=== PATIENT | male | born 2005 | race Two or more races ===

== ENCOUNTER 2025-03-03 13:04 | Emergency (ER) | payer MEDICAID, SELFPAY ==
[2025-03-03 13:06] VITALS: BMI 33.0
[2025-03-03 13:14] VITALS: BP 127/77; PULSE 75; RESP 16; TEMP 36.9; O2SAT 98
--- NOTE | 2025-03-03 13:49 | EDNOTE_ITS ---
ED General RME/HPI General Chief complaint: General Adult/Misc Complain Stated complaint: BURNING IN EYES FROM ANXIETY MEDS Time Seen by Provider: 03/03/25 13:25 Source: patient Arrival date/time: 03/03/25 13:04 19-year-old male with no known medical history presents to the emergency room with a chief complaint of a burning sensation in his eyes bilaterally as well as stiff neck x 2 days. Patient states he is taking medication for his anxiety and since starting this medication is began to have the symptoms. Mode of arrival: ambulatory Limitations: no limitations Related Data Allergies Allergy/AdvReac Type Severity Reaction Status Date / Time NKA* Allergy Uncoded 03/03/25 13:08 Review of Systems Review of Systems Systems Reviewed: All systems reviewed, normal except as documented Constitutional Constitutional: Reports system reviewed and no additional complaints, except as documented, Denies fatigue, Denies fever(s), Denies headache(s) and Denies weakness Eyes Eyes: Reports system reviewed and no additional complaints, except as documented, Denies blind spots, Reports blurry vision, Denies change in vision, Denies diplopia, Denies eye discharge, Denies irritation, Denies loss of peripheral vision, Denies loss of vision, Reports eye pain, Reports photophobia, Denies requires corrective lenses, Denies seeing flashes, Denies spots in vision and Denies tunnel vision ENT Ears, Nose, Mouth, and Throat: Reports system reviewed and no additional complaints, except as documented, Denies otalgia, Denies headache(s), Denies nasal congestion, Denies throat swelling and Denies vertigo Cardiovascular Cardiovascular: Reports system reviewed and no additional complaints, except as documented, Denies chest pain, Denies dyspnea and Denies dyspnea on exertion Respiratory Respiratory: Reports system reviewed and no additional complaints, except as documented, Denies chest congestion, Denies cough, Denies dyspnea, Denies dyspnea on exertion and Denies wheezing Gastrointestinal Gastrointestinal: Reports system reviewed and no additional complaints, except as documented, Denies abdominal pain, Denies cramping, Denies nausea and Denies vomiting Genitourinary Genitourinary: Reports system reviewed and no additional complaints, except as documented, Denies dysuria and Denies hematuria Musculoskeletal Musculoskeletal: Reports system reviewed and no additional complaints, except as documented and Denies back pain Integumentary/Breasts Skin/Breast: Reports system reviewed and no additional complaints, except as documented and Denies wounds Neurologic Neurologic: Reports system reviewed and no additional complaints, except as documented, Denies confusion, Denies headache(s), Denies lack of coordination, Denies loss of vision, Denies vertigo and Denies weakness Psychiatric Psychiatric: Reports system reviewed and no additional complaints, except as documented, Denies anxiety, Denies confusion, Denies depression, Denies paranoia, Denies suicidal ideation and Denies tactile hallucinations Endocrine Endocrine: Reports system reviewed and no additional complaints, except as documented and Denies fatigue Hematologic/Lymphatic Hematologic/Lymphatic: Reports system reviewed and no additional complaints, except as documented and Denies lymphadenopathy Allergic/Immunologic Allergic/Immunologic: Reports system reviewed and no additional complaints, except as documented, Denies throat swelling, Denies urticaria and Denies wheezing Past Medical History Social History SMOKING STATUS: Never smoker ED Exam General Limitations: Present no limitations General appearance: Present alert and in no apparent distress Head Head exam: Present atraumatic Eye Eye exam: Present normal appearance, PERRL and EOMI Expanded Eye Exam Eyelids: bilateral: normal inspection Pupils: Bilateral: regular, round and reactive Sclera/Conjunctival: bilateral: normal inspection Anterior chamber: bilateral: normal inspection IOP (R) in mmH IOP (L) in mmH IOP measured with: [facility] ENT exam: Present normal exam, normal oropharynx and mucous membranes moist Neck Neck exam: Present normal inspection, full ROM and trachea midline; Absent tenderness, meningismus, lymphadenopathy or thyromegaly Expanded Neck Exam Neck exam focused ED: Absent midline tenderness, paraspinal tenderness, tracheal deviation, anterior neck swelling, thyroid enlargement, JVD or carotid bruit Chest Chest inspection: Present normal inspection and symmetric chest wall rise Respiratory Respiratory exam: Present normal lung sounds bilaterally Cardiovascular Cardiovascular exam: Present regular rate, normal rhythm and normal heart sounds Abdominal Exam Abdominal exam: Present soft and normal bowel sounds Extremities Exam Extremities exam: Present normal inspection and full ROM Back Exam Back exam: Present normal inspection and full ROM Neurological Exam Neurological exam: Present alert, oriented X3 and CN II-XII intact Psychiatric Psychiatric exam: Present normal affect and normal mood Skin Skin exam: Present warm, dry, intact and normal color Course Quality Measures none Orders Category Date Time Status CBC Stat Lab 03/03/25 14:15 Completed CMP [Comprehensive Metabolic Panel] Stat Lab 03/03/25 14:15 Completed Vital Signs Vital signs: Vital Signs Temperature 98.4 F 03/03/25 13:14 Pulse Rate 75 03/03/25 13:14 Respiratory Rate 16 03/03/25 13:14 Blood Pressure 127/77 03/03/25 13:14 Pulse Oximetry (%) 98 03/03/25 13:14 Oxygen Delivery Method Room Air 03/03/25 13:14 O2 saturation 98% within normal limits MDM Patient data External records reviewed:: [facility] previous records Clinical information provided by:: patient Social determinants that could affect healthcare access:: none Patient has the following chronic illnesses:: No chronic illness How is presenting disease/condition affected by chronic disease/condition?: no chronic disease Evaluation data The following diagnostics were reviewed and interpreted by me:: lab results and radiology exam(s) Lab and/or radiology exams considered but not ordered:: Labs and radiology exams considered and ordered Interpretation Summary: N/A Medications Medications considered but not ordered:: Medication Medication administrations:: Medication given Consultations Consultation(s) initiated? (list below): No Diagnosis Differential Diagnosis ED Complaint MDM: Adverse reaction to medication/allergic reaction/acute angle glaucoma/menin Most likely diagnosis given after review of the tests above:: Adverse reaction to medication Admission Indicated Admission indicated?: not indicated Explain why admission is indicated or not indicated:: N/A Admission Request Was there a request for admission?: No Disposition Plan Disposition Plan: Discharge Discharge Attestation Discharge Attestation: The patient and all family members were given an opportunity to ask questions and understood the discharge instructions. Discharge instructions specifically effects, indications for sooner follow up or return to the emergency department, and the expected course of current diagnosis. Patient condition: Stable Medical Decision Making MDM Narrative MDM Narrative: 19-year-old male with no known medical history presents to the emergency room with a chief complaint of a burning sensation in his eyes bilaterally as well as stiff neck x 2 days. Patient states he is taking medication for his anxiety and since starting this medication is began to have the symptoms. Patient is hemodynamically stable and in no apparent distress. Physical examination shows a normal ENT examination. The pupils are PERRLA EOMs are intact patient is a GCS of 15 he is alert and oriented patient states he feels a burning pressure sensation to his eyes bilaterally. The tonometer was used and the pressure bilaterally was within normal limits. Patient is also complaining of a stiff neck patient is able to move it and has a full range of motion. CBC CMP were negative for any leukocytosis I spoke to the patient and told him that the most probable cause of all his symptoms are due to his anxiety medication. The patient states that ever since starting this medication although the symptoms began. I spoke to the patient and told him to stop taking this medication and to follow-up with his primary care provider Patient was discharged and educated to follow-up with primary care provider in the next 24 to 48 hours and return to the emergency room for any evidence of worsening signs or symptoms Differential Diagnosis Differential Diagnosis: Adverse reaction to medication/allergic reaction/acute angle glaucoma/menin Lab Data 03/03/25 14:15 03/03/25 14:15 Labs: Lab Results 03/03/25 Range/Units 14:15 WBC 10.5 (4.5-11.0) Thou/mm3 RBC 5.67 (4.50-5.90) Miln/mm3 Hgb 15.8 (13.5-16.0) g/dL Hct 49.2 (41.0-53.0) % MCV 87 (80-100) fL MCH 27.9 (25.0-35.0) pg MCHC 32.1 (31.0-37.0) g/dl RDW Std Deviation 39.6 (35.1-43.9) fL Plt Count 297 (140-440) Thou/mm3 Neut % (Auto) 66 (37-80) % Lymph % (Auto) 26 (10-50) % Stanley % (Auto) 6 (0-12) % Eos % (Auto) 2 (0-10) % Baso % (Auto) 1 (0-2.5) % Neut # (Auto) 6.9 (1.8-7.7) Thou/mm3 Lymph # (Auto) 2.7 (1.0-4.8) Thou/mm3 Stanley # (Auto) 0.6 (0.0-0.8) Thou/mm3 Eos # (Auto) 0.2 (0.0-0.5) Thou/mm3 Baso # (Auto) 0.1 (0.0-0.2) Thou/mm3 Immature Gran # (Auto) 0.04 H (0.00-0.00) Thou/mm3 Absolute Nucleated RBC 0.00 (0.00-0.00) Thou/mm3 Immature Gran % 0 (0-0) % Nucleated RBC % 0 (0) /100 WBC Sodium 142 (136-145) mMol/L Potassium 4.2 (3.4-5.1) mMol/L Chloride 105 (98-107) mMol/L Carbon Dioxide 28.9 (20.0-31.0) mMol/L Anion Gap 8 (7-16) BUN 13 (9-23) mg/dL Creatinine 1.2 (0.6-1.3) mg/dL Estim Creat Clear Calc 136.9 (>60) mL/min eGFR > 60 (60 - ) See Note BUN/Creatinine Ratio 11 L (12-20) Ratio Glucose 87 (74-106) mg/dL Calculated Osmolality 282 (275-295) Calcium 9.7 (8.3-10.6) mg/dL Corrected Calcium 9.7 (8.5-10.1) mg/dL Total Bilirubin 0.8 (0.3-1.2) mg/dL AST 20 (0-34) U/L ALT 19 (10-49) U/L Alkaline Phosphatase 87 (46-116) U/L Total Protein 8.0 (5.7-8.2) gm/dL Albumin 5.1 H (3.5-5.0) gm/dL Globulin 2.9 (2.3-3.5) gm/dL Albumin/Globulin Ratio 1.8 (1.2-2.2) Discharge Plan Plan Patient Disposition: HOME (Self Care) Disposition Comment: Stable Prescriptions/Referrals Referrals: No Primary/Family,Physician [Primary Care Provider] - In 1 week Problem List Clinical Impression: Adverse effects of medication Patient/Caregiver Discharge Instructions Education Materials: ED Drug Reaction, Other Additional Instructions: Please follow-up with your primary care provider in the next 24 to 48 hours. Please stop taking your anxiety medication. This seems to be the source of all your problems. Blood work was completed today and there is no acute signs of any infection. The eye pressure in your eyes today was normal. Please follow-up with your primary care provider and return to the emergency room for any evidence of worsening signs or symptoms Print Language: Sierra Leonean Stand Alone Forms: [employer] Award Info., Patient Portal Info Letter KALEB/ASHLEIGH Supervising Physician KALEB/ASHLEIGH Supervising Physician: Dr Griffin
[2025-03-03 14:40] LABS: Basophils # (Auto) 0.1 Thou/mm3 (0.0-0.2); Basophils % (Auto) 1 % (0-2.5); Eosinophils # (Auto) 0.2 Thou/mm3 (0.0-0.5); Eosinophils % (Auto) 2 % (0-10); Hematocrit 49.2 % (41.0-53.0); Hemoglobin 15.8 g/dL (13.5-16.0); Immature Granulocytes % (Auto) 0 % (0-0); Immature Granulocytes Auto 0.04 Thou/mm3 (0.00-0.00); Lymphocytes # (Auto) 2.7 Thou/mm3 (1.0-4.8); Lymphocytes % (Auto) 26 % (10-50); Mean Corpuscular HGB Conc 32.1 g/dl (31.0-37.0); Mean Corpuscular Hemoglobin 27.9 pg (25.0-35.0); Mean Corpuscular Volume 87 fL (80-100); Monocytes # (Auto) 0.6 Thou/mm3 (0.0-0.8); Monocytes % (Auto) 6 % (0-12); Neutrophils # (Auto) 6.9 Thou/mm3 (1.8-7.7); Neutrophils % (Auto) 66 % (37-80); Nucleated Red Blood Cell % 0 /100 WBC (0); Platelet Count 297 Thou/mm3 (140-440); RDW Standard Deviation 39.6 fL (35.1-43.9); Red Blood Count 5.67 Miln/mm3 (4.50-5.90); White Blood Count 10.5 Thou/mm3 (4.5-11.0)
[2025-03-03 15:02] LABS: Alanine Aminotransferase 19 U/L (10-49); Albumin, Serum 5.1 gm/dL (3.5-5.0); Albumin/Globulin Ratio 1.8 (1.2-2.2); Alkaline Phosphatase 87 U/L (46-116); Anion Gap 8 (7-16); Aspartate Amino Transferase 20 U/L (0-34); BUN/Creatinine Ratio 11 Ratio (12-20); Bilirubin,Total 0.8 mg/dL (0.3-1.2); Blood Urea Nitrogen 13 mg/dL (9-23); Calcium 9.7 mg/dL (8.3-10.6); Calcium (Corrected) 9.7 mg/dL (8.5-10.1); Carbon Dioxide 28.9 mMol/L (20.0-31.0); Chloride 105 mMol/L (98-107); Creatinine (Component) 1.2 mg/dL (0.6-1.3); Estimated Creatinine Clearance 136.9 mL/min (>60); Globulin 2.9 gm/dL (2.3-3.5); Glucose 87 mg/dL (74-106); Osmolality,Calculated 282 (275-295); Potassium 4.2 mMol/L (3.4-5.1); Sodium 142 mMol/L (136-145); eGFR > 60 See Note
== END 2025-03-03 16:22 | disposition home or self-care (01) ==
PROVIDERS: Nurse Practitioner Family; Emergency Provider Emergency Medicine
DX: F41.9 Anxiety disorder, unspecified (principal); T50.905A Adverse effect of unspecified drugs, medicaments and biological substances, initial encounter
CPT/HCPCS: 36415; 80053; 85025; 99283

== ENCOUNTER 2025-05-09 04:45 | Emergency (ER) | payer MEDICAID, SELFPAY ==
[2025-05-09 04:46] VITALS: BMI 33.5
[2025-05-09 05:31] VITALS: BP 122/84; PULSE 84; RESP 19; TEMP 36.7; O2SAT 99
--- NOTE | 2025-05-09 06:00 | PD.EDRME ---
Rapid Medical Screening Exam RME Arrival date/time: 05/09/25 04:45 Chief Complaint: Abdominal Pain Vital signs: Vital Signs Temperature 98.1 F 05/09/25 05:31 Pulse Rate 84 05/09/25 05:31 Respiratory Rate 19 05/09/25 05:31 Blood Pressure 122/84 05/09/25 05:31 Pulse Oximetry (%) 99 05/09/25 05:31 Oxygen Delivery Method Room Air 05/09/25 05:31 Vital signs reviewed by provider: Yes RME Narrative: 19-year-old male presents to the ED with a complaint of epigastric pain that began at approximately 7 PM tonight. He states he ate food at approximately 3 PM and the pain began around 7 PM. He has had nausea but no vomiting. He denies fever or chills. He denies any previous occurrence. He denies any reflux type symptoms. I have greeted and performed a focused initial assessment of this patient. A comprehensive ED assessment and evaluation of the patient, analysis of all test results, and completion of the medical decision making process will be conducted by additional ED providers.
--- NOTE | 2025-05-09 06:01 | XR_ITS ---
Examination: Abdomen sonogram, complete Date and time of exam: May 09, 2025, 0816 hrs. Indications: Onset right upper abdominal pain today. Technique: Multiple real-time grayscale transabdominal sonographic images of the abdomen have been obtained. Findings: Multiple gallstones Gallbladder wall 0.46 cm no edema Common bile duct 0.6 cm no stones Liver 15.4 cm no focal liver lesions Normal hepatopedal portal venous flow Patent IVC Impression: Cholelithiasis Thickened gallbladder wall, clinical correlation advised, consider HIDA scan or MRCP follow-up as clinically warranted
[2025-05-09 06:40] LABS: Amphetamine/Methamp Scrn,U Negative (Negative); Barbiturate Screen,Urine Negative (Negative); Benzodiazepines Screen,Urine Negative (Negative); Benzoylecgonine Screen, Ur Negative (Negative); Fentanyl Screen,Urine Negative (Negative); Opiate Screen,Urine Negative (Negative); THC Screen,Urine Negative (Negative)
[2025-05-09 07:42] LABS: Basophils % (Auto) 0 % (0-2.5); Eosinophils # (Auto) 0.2 Thou/mm3 (0.0-0.5); Eosinophils % (Auto) 2 % (0-10); Hematocrit 48.1 % (41.0-53.0); Immature Granulocytes % (Auto) 1 % (0-0); Immature Granulocytes Auto 0.05 Thou/mm3 (0.00-0.00); Lymphocytes # (Auto) 2.6 Thou/mm3 (1.0-4.8); Lymphocytes % (Auto) 24 % (10-50); Mean Corpuscular HGB Conc 33.3 g/dl (31.0-37.0); Mean Corpuscular Hemoglobin 28.3 pg (25.0-35.0); Mean Corpuscular Volume 85 fL (80-100); Monocytes # (Auto) 0.8 Thou/mm3 (0.0-0.8); Monocytes % (Auto) 7 % (0-12); Neutrophils # (Auto) 7.3 Thou/mm3 (1.8-7.7); Neutrophils % (Auto) 66 % (37-80); Nucleated Red Blood Cell % 0 /100 WBC (0); Platelet Count 256 Thou/mm3 (140-440); RDW Standard Deviation 38.5 fL (35.1-43.9); Red Blood Count 5.66 Miln/mm3 (4.50-5.90)
[2025-05-09 08:22] LABS: Alanine Aminotransferase 21 U/L (10-49); Alkaline Phosphatase 85 U/L (46-116); Amylase 36 U/L (30-118); Anion Gap 11 (7-16); Aspartate Amino Transferase 18 U/L (0-34); BUN/Creatinine Ratio 8 Ratio (12-20); Bilirubin,Total 0.5 mg/dL (0.3-1.2); Blood Urea Nitrogen 8 mg/dL (9-23); Calcium 9.7 mg/dL (8.3-10.6); Calcium (Corrected) 9.7 mg/dL (8.5-10.1); Carbon Dioxide 27.5 mMol/L (20.0-31.0); Chloride 105 mMol/L (98-107); Estimated Creatinine Clearance 165.5 mL/min (>60); Globulin 2.5 gm/dL (2.3-3.5); Glucose 98 mg/dL (74-106); Lipase 31 U/L (12-53); Magnesium 2.2 mg/dL (1.6-2.6); Osmolality,Calculated 283 (275-295); Phosphorous 4.1 mg/dL (2.4-5.1); Potassium 3.7 mMol/L (3.4-5.1); Sodium 143 mMol/L (136-145); Total Protein 7.5 gm/dL (5.7-8.2); eGFR > 60 See Note
--- NOTE | 2025-05-09 08:28 | PC.NURSE ---
NO ANSWER AT THIS TIME
--- NOTE | 2025-05-09 08:58 | EDNOTE_ITS ---
ED General RME/HPI General Chief complaint: Abdominal Pain Stated complaint: RUQ ABD PAIN Time Seen by Provider: 05/09/25 06:23 Arrival date/time: 05/09/25 04:45 Limitations: no limitations RME / HPI RME / HPI narrative: 19-year-old male presents to the ED with a complaint of epigastric pain that began at approximately 7 PM tonight. He states he ate food at approximately 3 PM and the pain began around 7 PM. He has had nausea but no vomiting. He denies fever or chills. He denies any previous occurrence. He denies any reflux type symptoms. I have greeted and performed a focused initial assessment of this patient. A comprehensive ED assessment and evaluation of the patient, analysis of all test results, and completion of the medical decision making process will be conducted by additional ED providers. DR. WRIGHT MAIN ED EVALUATION: 19 year old male presents to the Emergency Department accompanied by his father with complaint of severe epigastric pain since yesterday, worse this morning at 4 AM. PMHx: Anxiety (takes medication), GERD (takes Pepsin since 2 months ago), takes vitamin D, and had an appendectomy. Denies any known allergies. Social Hx: No tobacco, alcohol, or substance use. Related Data Previous Rx's ?Medication ?Instructions ?Recorded hydrocodone 5 mg-acetaminophen 325 1 tab PO TID PRN pa in #14 tabs 05/09/25 mg tablet Allergies Allergy/AdvReac Type Severity Reaction Status Date / Time No Known Allergies Allergy Unverified 05/09/25 09:39 Review of Systems Review of Systems Systems Reviewed: All systems reviewed, normal except as documented Past Medical History Past Medical History CARDIAC: Negative Congestive Heart Failure RESPIRATORY: Negative Chronic Obstructive Pulmonary Disease (COPD) GENITOURINARY: Negative Renal Disease ENDOCRINE: Negative Diabetes Mellitus Type 1 or Diabetes Mellitus Type 2 PSYCHO/SOCIAL: Positive Anxiety Social History SMOKING STATUS: Never smoker ED Exam General Limitations: Present no limitations General appearance: Present alert Head Head exam: Present atraumatic, normocephalic and normal inspection Eye Eye exam: Present normal appearance, PERRL and EOMI ENT ENT exam: Present normal exam, normal oropharynx and mucous membranes moist Neck Neck exam: Present normal inspection, full ROM and trachea midline Chest Chest inspection: Present normal inspection and symmetric chest wall rise Respiratory Respiratory exam: Present normal lung sounds bilaterally Cardiovascular Cardiovascular exam: Present regular rate, normal rhythm and normal heart sounds Abdominal Exam Abdominal exam: Present normal bowel sounds and other (epigastric pain, but no tenderness, obese abdomen) Extremities Exam Extremities exam: Present normal inspection and full ROM Back Exam Back exam: Present normal inspection and full ROM Neurological Exam Neurological exam: Present alert, oriented X3 and CN II-XII intact Psychiatric Psychiatric exam: Present normal affect and normal mood Skin Skin exam: Present warm, dry, intact and normal color Course Quality Measures none Orders Category Date Time Status NPO STAT Care 05/09/25 06:01 Completed NM HIDA w pharm Stat Exams 05/09/25 11:24 Ordered US abdomen Stat Exams 05/09/25 06:01 Completed Amylase Stat Lab 05/09/25 06:45 Completed CBC Stat Lab 05/09/25 06:45 Completed Comprehensive Metabolic Panel Stat Lab 05/09/25 06:45 Completed Drug Screen,Urine Stat Lab 05/09/25 06:10 Completed Lipase Stat Lab 05/09/25 06:45 Completed Magnesium Stat Lab 05/09/25 06:45 Completed Phosphorous Stat Lab 05/09/25 06:45 Completed Urine Culture Stat Lab 05/09/25 06:10 Received Lidocaine 2% Viscous [Xylocaine 2% Viscous] Med 05/09/25 10:53 Discontinued 15 ml PO X1 ONE Pantoprazole Inj [Protonix Inj] Med 05/09/25 09:37 Discontinued 40 mg IVP X1 ONE Sodium Chloride 0.9% 1000 ml [Ns] 1,000 ml Med 05/09/25 09:37 Discontinued IV 999 mls/hr mg Hyd/Al Hyd/Andrés Susp [Maalox Susp] Med 05/09/25 10:53 Discontinued 30 ml PO X1 ONE Vital Signs Vital signs: Vital Signs Temperature 98.1 F 05/09/25 05:31 Pulse Rate 84 05/09/25 05:31 Respiratory Rate 19 05/09/25 05:31 Blood Pressure 122/84 05/09/25 05:31 Pulse Oximetry (%) 99 05/09/25 05:31 Oxygen Delivery Method Room Air 05/09/25 05:31 Discharge Plan Plan Patient Disposition: HOME (Self Care) Patient condition on transfer: Stable Prescriptions/Referrals Prescriptions/Med Rec: New hydrocodone-acetaminophen 5-325 mg tablet 1 tab PO TID MDD 3 PRN (Reason: pain) Qty: 14 0RF Referrals: Cheng Peres MD [Primary Care Provider] - In 1 week Problem List Clinical Impression: Epigastric pain Patient/Caregiver Discharge Instructions Education Materials: ED Epigastric Pain (Uncertain Cause) Additional Instructions: Please return tomorrow for you HIDA scan, preferably after 8 AM. Return to the Emergency Department as needed. Por favor, regrese ma?radha para collado gammagraf?a HIDA, preferiblemente despu?s de las 8:00 a. m. Regrese a Urgencias cuando sea necesario. Print Language: Estonian Stand Alone Forms: [employer] Award Info., Work/School Release, Patient Portal Info Letter MDM Narrative [facility] hospital course: I, Sandra Ernst, am scribing for and in the presence of Dr. Wright. Patient has epigastric pain. No HIDA scan available on Sundays, so patient will come back tomorrow. Plan to discharge. Clinical Information Provided by patient and parent (father) Medical Records Reviewed [facility] Meds/Rx Considered, not Ordered None Labs/Rad/Tests considered, not Ordered None Chronic Illness/Social Conditions Add or document further as needed: Anxiety (takes medication), GERD (takes Pepsin since 2 months ago), takes vitamin D, and had an appendectomy. Denies any known allergies. EKG EKG not done Lab Interpretation Labs: see narrative above Imaging Imaging interpretation: see narrative above Radiology reports / interpretation(s): Procedure(s): US abdomen Accession Number(s): [id number] cc: Yonas Campos MD; Zakia Queen PA-C; Cheng Peres MD~ Examination: Abdomen sonogram, complete Date and time of exam: May 09, 2025, 0816 hrs. Indications: Onset right upper abdominal pain today. Technique: Multiple real-time grayscale transabdominal sonographic images of the abdomen have been obtained. Findings: Multiple gallstones Gallbladder wall 0.46 cm no edema Common bile duct 0.6 cm no stones Liver 15.4 cm no focal liver lesions Normal hepatopedal portal venous flow Patent IVC Impression: Cholelithiasis Thickened gallbladder wall, clinical correlation advised, consider HIDA scan or MRCP follow-up as clinically warranted Dictated By: Yonas Campos MD Medication Administration(s) Medication Administration History Discontinued Medications Al Hydrox/Mg Hydrox/Simethicone (Mg Hyd/Al Hyd/Andrés (Maalox Reg) Susp 30 Ml Udc) 30 ml PO X1 ONE Stop: 05/09/25 10:54 Last Admin: 05/09/25 11:01 Dose: 30 ml Documented By: FÉLIX Sodium Chloride (Ns) 1,000 mls @ 999 mls/hr IV .Q1H1M ONE Stop: 05/09/25 10:37 Last Infusion: 05/09/25 11:05 Dose: Infused Documented By: Admin: 05/09/25 09:54 Dose: 999 mls/hr Documented By: LIN Lidocaine HCl (Lidocaine Viscous 2% 15 Ml Udc) 15 ml PO X1 ONE Stop: 05/09/25 10:54 Last Admin: 05/09/25 11:01 Dose: 15 ml Documented By: FÉLIX Pantoprazole Sodium (Pantoprazole Inj 40 Mg Vial) 40 mg IVP X1 ONE Stop: 05/09/25 09:38 Last Admin: 05/09/25 09:55 Dose: 40 mg Documented By: LIN Diagnosis Differential diagnosis: GERD, gastritis, peptic ulcer disease Most likely dx, and/or detailed dx discussion: Epigastric pain. Dispositon Disposition: Discharge Home
[2025-05-09 09:09] VITALS: BP 134/85; PULSE 81; RESP 18; TEMP 36.8; O2SAT 98
[2025-05-09] MEDS: SODIUM CHLORIDE 0.9% 1000 ML 1,000 ML 999 ML IV (09:54)
[2025-05-09] MEDS: PANTOPRAZOLE INJ 40 MG VIAL IVP (09:55)
[2025-05-09 10:16] VITALS: BP 136/89; PULSE 55; RESP 18; TEMP 36.8; O2SAT 98
[2025-05-09] MEDS: LIDOCAINE VISCOUS 2% 15 ML UDC PO (11:01)
[2025-05-09] MEDS: MG HYD/AL HYD/SIME (Maalox Reg) SUSP 30 ML UDC PO (11:01)
[2025-05-09 12:00] VITALS: BP 136/80; PULSE 61; RESP 20; TEMP 36.6; O2SAT 100
[2025-05-09 12:45] VITALS: BP 137/90; PULSE 61; RESP 16; TEMP 36.7; O2SAT 99
== END 2025-05-09 12:46 | disposition home or self-care (01) ==
PROVIDERS: Physician Assistant; Emergency Provider Family Medicine; PCP Family Medicine
DX: K80.20 Calculus of gallbladder without cholecystitis without obstruction (principal)
CPT/HCPCS: 36415; 76700; 80053; 80307; 81001; 82150; 83690; 83735; 84100; 85025; 87086; 96361; 96374; 99284; J2470; J3490; J7030; A9270

== ENCOUNTER 2025-05-09 18:46 | Emergency (ER) | payer MEDICAID, SELFPAY ==
[2025-05-09 18:56] VITALS: BP 117/77; PULSE 84; RESP 17; TEMP 36.9; O2SAT 98; BMI 32.5
--- NOTE | 2025-05-09 18:59 | XR_ITS ---
Examination: Abdomen sonogram, Limited Date and time of exam: May 09, 2025 1904 hours INDICATIONS: Onset of epigastric pain and nausea today Technique: Real-time villagran scale transabdominal sonographic images of the upper abdomen obtained. Findings: Multiple gallstones Gallbladder wall 0.29 cm with edema Common bile duct 0.2 cm Pancreatic 3.3 cm Liver 17.7 cm lobular contour fatty infiltration Normal hepatopedal portal venous and Date and IVC IMPRESSION: Cholelithiasis. Suspicious for cholecystitis, consider HIDA scan or MRCP follow-up
--- NOTE | 2025-05-09 19:21 | PD.EDABDPN ---
ED Abdominal Pain RME/HPI General Chief Complaint: Abdominal Pain Stated complaint: EPIGASTRIC PAIN Time seen by provider: 05/09/25 18:48 Arrival date/time: 05/09/25 18:46 This is a case of 19-year-old male who came in in the emergency room due to abdominal pain mainly on the epigastric area radiating to the both upper abdomen patient states that the pain has on and off for 1 month which becomes severe today patient was seen here this morning where blood test was performed and everything were normal ultrasound showed cholelithiasis due to thickened gallbladder the radiologist suggested to have HIDA scan patient was given pain medication here in the ER and improved and was advised to return tomorrow for HIDA scan due to persistent severity of the pain this patient decided to sought consult here in the emergency room associated symptoms nausea vomiting denies any constipation diarrhea or blood in stool Source: patient and family Limitations: no limitations Related Data Previous Rx's ?Medication ?Instructions ?Recorded famotidine 20 mg tablet 20 mg PO BID #30 tabs 05/09/25 hydrocodone 5 mg-acetaminophen 325 1 tab PO Q6H PRN pain #10 tabs 05/09/25 mg tablet hydrocodone 5 mg-acetaminophen 325 1 tab PO TID PRN pain #14 tabs 05/09/25 mg tablet ondansetron 4 mg disintegrating 4 mg PO Q8H PRN nausea and 05/09/25 tablet vomiting #20 tabs Allergies Allergy/AdvReac Type Severity Reaction Status Date / Time No Known Allergies Allergy Unverified 05/09/25 18:49 Review of Systems Review of Systems Systems Reviewed: All systems reviewed, normal except as documented Constitutional Constitutional: Reports system reviewed and no additional complaints, except as documented and Reports as per HPI ENT Ears, Nose, Mouth, and Throat: Denies dysphagia and Denies odynophagia Cardiovascular Cardiovascular: Reports system reviewed and no additional complaints, except as documented and Reports as per HPI Respiratory Respiratory: Reports system reviewed and no additional complaints, except as documented and Reports as per HPI Gastrointestinal Gastrointestinal: Reports system reviewed and no additional complaints, except as documented, Reports as per HPI, Reports abdominal pain, Denies belching, Denies bloating, Denies change in bowel habits, Denies change in stool character, Denies coffee ground emesis, Denies constipation, Denies cramping, Denies diarrhea, Denies dyspepsia, Denies dysphagia, Denies early satiety, Denies excessive flatus, Denies fecal incontinence, Denies heartburn, Denies hematemesis, Denies hematochezia, Denies loose stools, Denies melena, Reports nausea, Denies odynophagia, Denies tenesmus and Reports vomiting Musculoskeletal Musculoskeletal: Reports system reviewed and no additional complaints, except as documented and Reports as per HPI Neurologic Neurologic: Reports system reviewed and no additional complaints, except as documented and Reports as per HPI Past Medical History Past Medical History CARDIAC: Negative Congestive Heart Failure RESPIRATORY: Negative Chronic Obstructive Pulmonary Disease (COPD) GENITOURINARY: Negative Renal Disease ENDOCRINE: Negative Diabetes Mellitus Type 1 or Diabetes Mellitus Type 2 PSYCHO/SOCIAL: Positive Anxiety Social History SMOKING STATUS: Never smoker ED Exam General Limitations: Present no limitations General appearance: Present alert and in no apparent distress Head Head exam: Present atraumatic, normocephalic and normal inspection Eye Eye exam: Present normal appearance, PERRL and EOMI ENT ENT exam: Present normal exam, normal oropharynx, mucous membranes moist and TM's normal bilaterally; Absent mucous membranes dry Neck Neck exam: Present normal inspection, full ROM and trachea midline; Absent tenderness, meningismus, lymphadenopathy or thyromegaly Chest Chest inspection: Present normal inspection and symmetric chest wall rise; Absent tenderness, rash or abscess Respiratory Respiratory exam: Present normal lung sounds bilaterally; Absent respiratory distress, wheezes, stridor, accessory muscle use or prolonged expiratory phase Cardiovascular Cardiovascular exam: Present regular rate, normal rhythm and normal heart sounds Abdominal Exam Abdominal exam: Present soft, tenderness (Mild tenderness on the epigastric area and right upper quadrant), normal bowel sounds and Montiel's sign; Absent distention, guarding, rebound, rigidity, diminished bowel sounds, hyperactive bowel sounds, hypoactive bowel sounds, organomegaly, trauma, incision, psoas sign, obturator sign, heel tap sign, Rovsing's sign, tenderness at McBurney's Point, ascites, mass, bruit, pulsatile mass, hernia or scar Abdominal tenderness: Present RUQ, epigastrium and mild Extremities Exam Extremities exam: Present normal inspection and full ROM Back Exam Back exam: Present normal inspection and full ROM Neurological Exam Neurological exam: Present alert, oriented X3, CN II-XII intact, normal gait and reflexes normal; Absent motor sensory deficit Psychiatric Psychiatric exam: Present normal affect and normal mood Skin Skin exam: Present warm, dry, intact and normal color Course Quality Measures none Orders Category Date Time Status Insert IV NOW Care 05/09/25 19:40 Active US gall bladder Stat Exams 05/09/25 18:59 Completed CBC Stat Lab 05/09/25 19:41 Completed Comprehensive Metabolic Panel Stat Lab 05/09/25 19:41 Completed Lipase Stat Lab 05/09/25 19:41 Completed Urinalysis Stat Lab 05/09/25 20:02 Completed HYDROcodone*/APAP 5/325 [[place] 5/325] Med 05/09/25 20:48 Discontinued 1 tab PO X1 ONE Ondansetron Odt [Zofran Odt] Med 05/09/25 20:48 Discontinued 4 mg PO X1 ONE Vital Signs Vital signs: Vital Signs Temperature 98.4 F 05/09/25 18:56 Pulse Rate 84 05/09/25 18:56 Respiratory Rate 17 05/09/25 18:56 Blood Pressure 117/77 05/09/25 18:56 Pulse Oximetry (%) 98 05/09/25 18:56 Oxygen Delivery Method Room Air 05/09/25 18:56 Patient is afebrile not tachycardic not tachypneic blood pressure is stable normal not hypoxic oxygen saturation is in room air Abdominal Pain MDM MDM Narrative MDM Narrative:: This is a case of 19-year-old male who came in in the emergency room due to abdominal pain mainly on the epigastric area radiating to the both upper abdomen patient states that the pain has on and off for 1 month which becomes severe today patient was seen here this morning where blood test was performed and everything were normal ultrasound showed cholelithiasis due to thickened gallbladder the radiologist suggested to have HIDA scan patient was given pain medication here in the ER and improved and was advised to return tomorrow for HIDA scan due to persistent severity of the pain this patient decided to sought consult here in the emergency room associated symptoms nausea vomiting denies any constipation diarrhea or blood in stool physical examination patient is awake alert oriented not in distress not toxic looking patient is afebrile not tachycardic not tachypneic not hypoxic BP stable abdominal exam is mild tenderness in the epigastric area and right upper quadrant positive Montiel sign negative psoas negative straight or negative Rovsing's negative McBurney's negative CVA tenderness abdomen is not rigid no guarding no rebound blood test showed leukocytosis at 12,000 no anemia kidney and liver function is normal liver function and bilirubin is normal no electrolyte imbalance lipase normal urinalysis is normal repeat ultrasound showed a cholelithiasis possible suspecting cholecystitis I spoke to Dr. mendez initially for a GI consult and I was instructed to call the surgeon on-call for further evaluation and possible surgery I spoke to Dr. lemus discussed patient condition history and physical examination discussed patient laboratory results and ultrasound surgeon on-call came to patient bedside and discussed the treatment plan the patient decided not to be admitted today and he will go to the clinic of the surgeon tomorrow for further and to discuss the treatment plan and possible surgery patient was given [place] and Zofran abdominal pain improved and resolved no recurrence of vomiting patient will be following up tomorrow with Dr Encinas for reevaluation and possible outpatient surgery at this point patient is not jaundiced no fever abdomen is not guarding no rebound no rigidity patient can be discharged with stable condition Patient was discharged with comfortable condition walking with stable gait. Patient verbalized no further complains explained diagnosis and answered patient question. Patient is comfortable with the proposed management plan including the need to follow up with his/her primary care physician and any specialist if applicable Discussed patient for any urgent condition or worsening sx, He/She needed to go to emergency room immediately or call 911. Patient acknowledge the responsibility to follow up as instructed and to monitor her/his symptoms. For any persistence of the symptoms for more than 3-5 days return precaution advised. Discussed the result of the test and was given printed discharge instruction Patient data External records reviewed:: [facility] previous records Clinical information provided by:: patient Social determinants that could affect healthcare access:: none Patient has the following chronic illnesses:: none How is presenting disease/condition affected by chronic disease/condition?: no chronic disease Evaluation data The following diagnostics were reviewed and interpreted by me:: lab results and radiology exam(s) Lab and/or radiology exams considered but not ordered:: Reviewed Interpretation Summary: Reviewed Medications / Prescriptions Medications or Prescriptions considered but not ordered:: Given Medication administrations:: Medication Administration History Discontinued Medications Hydrocodone Bitart/Acetaminophen (Hydrocodone/Apap 5/325 Tablet) 1 tab PO X1 ONE Stop: 05/09/25 20:49 Ondansetron HCl (Ondansetron Odt 4 Mg Tabrap) 4 mg PO X1 ONE; Protocol Stop: 05/09/25 20:49 Given Consultations Consultation(s) initiated? (list below): No Consultation #1 (Physician, Specialty, Details): Dr. Mendez states that the patient needs to have a general surgeon consult Consultation #2 (Physician, Specialty, Details): DR alvarenga discussed patient condition history and physical examination Dr. alvarenga seen patient at bedside examined and discussed the treatment plan both of them agreed that the patient will be discharged today and the patient will follow-up with his clinic and to talk to the treatment plan and possible outpatient surgery Diagnosis Differential diagnosis abdominal pain: abdominal pain and other (Cholecystitis cholelithiasis) Most likely diagnosis given after review of the tests above:: Cholelithiasis Admission Indicated Admission indicated?: not indicated Explain why admission is indicated or not indicated:: Not indicated Admission Request Was there a request for admission?: No Admission Attestation Admission request attestation: Not indicated Disposition Plan Disposition Plan: Discharge Discharge Attestation Discharge Attestation: The patient and all family members were given an opportunity to ask questions and understood the discharge instructions. Discharge instructions specifically effects, indications for sooner follow up or return to the emergency department, and the expected course of current diagnosis. Patient condition: Stable Discharge Plan Plan Patient Disposition: HOME (Self Care) Patient condition on transfer: Stable Prescriptions/Referrals Prescriptions/Med Rec: New ondansetron 4 mg tablet,disintegrating 4 mg PO Q8H PRN (Reason: nausea and vomiting) Qty: 20 0RF famotidine 20 mg tablet 20 mg PO BID Qty: 30 0RF hydrocodone-acetaminophen 5-325 mg tablet 1 tab PO Q6H MDD max 4 tabs per day PRN (Reason: pain) Qty: 10 0RF No Action hydrocodone-acetaminophen 5-325 mg tablet 1 tab PO TID MDD 3 PRN (Reason: pain) Qty: 14 0RF Referrals: No Primary/Family,Physician [Primary Care Provider] - In 1 week Osbaldo Alvarenga MD [Physician] - 05/10/25 (Follow-up tomorrow for reevaluation and possible outpatient surgery for cholelithiasis as directed by the surgeon) Problem List Clinical Impression: Abdominal pain, Cholelithiasis Patient/Caregiver Discharge Instructions Education Materials: Abdominal Pain, Treating Gallstones Additional Instructions: Follow-up with your primary care physician in 2 days for reevaluation it is very important to go to the doctor Mary tomorrow for further evaluation and treatment of cholelithiasis and possible outpatient surgery as discussed by the surgeon today for any worsening symptoms or any emergent concerns such as fever chills jaundice severe pain nausea vomiting return to the emergency room immediately or call 911 modified diet avoid alcohol soda coffee avoid fat fried high cholesterol dairy food avoid soda coffee alcohol continue the medication that was prescribed this morning Print Language: [place] Stand Alone Forms: Luna Award Info., Patient Portal Info Letter PA/REPACKER Supervising Physician PA/REPACKER Supervising Physician: DR amador
[2025-05-09 19:57] LABS: Basophils % (Auto) 0 % (0-2.5); Eosinophils # (Auto) 0.2 Thou/mm3 (0.0-0.5); Eosinophils % (Auto) 2 % (0-10); Hematocrit 47.1 % (41.0-53.0); Hemoglobin 15.9 g/dL (13.5-16.0); Immature Granulocytes % (Auto) 0 % (0-0); Immature Granulocytes Auto 0.04 Thou/mm3 (0.00-0.00); Lymphocytes # (Auto) 2.1 Thou/mm3 (1.0-4.8); Lymphocytes % (Auto) 17 % (10-50); Mean Corpuscular HGB Conc 33.8 g/dl (31.0-37.0); Mean Corpuscular Hemoglobin 28.5 pg (25.0-35.0); Mean Corpuscular Volume 84 fL (80-100); Monocytes # (Auto) 0.7 Thou/mm3 (0.0-0.8); Monocytes % (Auto) 5 % (0-12); Neutrophils # (Auto) 9.2 Thou/mm3 (1.8-7.7); Neutrophils % (Auto) 75 % (37-80); Nucleated Red Blood Cell % 0 /100 WBC (0); Platelet Count 270 Thou/mm3 (140-440); RDW Standard Deviation 38.5 fL (35.1-43.9); Red Blood Count 5.58 Miln/mm3 (4.50-5.90); White Blood Count 12.3 Thou/mm3 (4.5-11.0)
[2025-05-09 20:11] LABS: Collection Type, Urine Clean Catch
[2025-05-09 20:19] LABS: Alanine Aminotransferase 21 U/L (10-49); Albumin, Serum 5.2 gm/dL (3.5-5.0); Albumin/Globulin Ratio 2.4 (1.2-2.2); Alkaline Phosphatase 86 U/L (46-116); Anion Gap 9 (7-16); Aspartate Amino Transferase 22 U/L (0-34); BUN/Creatinine Ratio 8 Ratio (12-20); Bilirubin,Total 0.4 mg/dL (0.3-1.2); Blood Urea Nitrogen 7 mg/dL (9-23); Calcium 9.8 mg/dL (8.3-10.6); Calcium (Corrected) 9.8 mg/dL (8.5-10.1); Carbon Dioxide 24.5 mMol/L (20.0-31.0); Chloride 107 mMol/L (98-107); Creatinine (Component) 0.9 mg/dL (0.6-1.3); Estimated Creatinine Clearance 181.2 mL/min (>60); Globulin 2.2 gm/dL (2.3-3.5); Glucose 137 mg/dL (74-106); Lipase 37 U/L (12-53); Osmolality,Calculated 279 (275-295); Sodium 140 mMol/L (136-145); Total Protein 7.4 gm/dL (5.7-8.2); eGFR > 60 See Note
[2025-05-09 20:19] LABS: Bilirubin,Urine Negative (Negative); Blood,Urine Trace (Negative); Clarity,Urine Clear (Clear/Hazy); Color,Urine Yellow (Lt Yel-Yel); Glucose, Urine Negative (Negative); Ketones,Urine Negative (Negative); Leukocyte Esterase,Urine Negative (Negative); Nitrite,Urine Negative (Negative); Protein,Urine 1+ (Neg - Trace); RBC,Urine 2 /hpf (0-3); Specific Gravity,Urine 1.035 (1.001-1.035); Squamous Epithelial Cell,Urine < 1 /hpf (0-5); Urobilinogen,Urine Negative mg/dL (0.0-1.0); WBC,Urine 1 /hpf (0-5)
[2025-05-09] MEDS: HYDROcodone/APAP 5/325 TABLET 1 TAB PO (21:04)
[2025-05-09] MEDS: ONDANSETRON ODT 4 MG TABRAP PO (21:04)
[2025-05-09 21:05] VITALS: BP 134/74; PULSE 98; RESP 16; O2SAT 97
== END 2025-05-09 21:12 | disposition home or self-care (01) ==
PROVIDERS: Nurse Practitioner Family; Emergency Provider Emergency Medicine
DX: K80.20 Calculus of gallbladder without cholecystitis without obstruction (principal)
CPT/HCPCS: 36415; 76705; 80053; 81001; 83690; 85025; 99284; Q0162; A9270

== ENCOUNTER 2025-07-10 18:19 | Emergency (ER) | payer MEDICAID, SELFPAY ==
[2025-07-10 18:20] VITALS: BMI 44.4
[2025-07-10 18:40] VITALS: BP 128/84; PULSE 57; RESP 19; TEMP 36.8; O2SAT 98
--- NOTE | 2025-07-10 19:05 | XR_ITS ---
Examination: Abdomen sonogram, Limited Date and time of exam: July 10, 2025, 1917 hours INDICATIONS: Right upper abdominal pain beginning several months ago Technique: Real-time villagran scale transabdominal sonographic images of the upper abdomen obtained. Findings: Multiple gallstones Normal gallbladder wall Normal common bile duct 0.4 cm Pancreatic head 3.3 cm. Liver 16.2 cm lobular contour fatty infiltration no focal liver lesions. Normal hepatopedal portal venous flow Patent IVC IMPRESSION: Cholelithiasis, negative for cholecystitis
[2025-07-10 19:16] LABS: Basophils # (Auto) 0.0 Thou/mm3 (0.0-0.2); Basophils % (Auto) 0 % (0-2.5); Eosinophils # (Auto) 0.4 Thou/mm3 (0.0-0.5); Eosinophils % (Auto) 3 % (0-10); Hematocrit 47.2 % (41.0-53.0); Hemoglobin 15.5 g/dL (13.5-16.0); Immature Granulocytes Auto 0.07 Thou/mm3 (0.00-0.00); Lymphocytes # (Auto) 3.8 Thou/mm3 (1.0-4.8); Lymphocytes % (Auto) 30 % (10-50); Mean Corpuscular HGB Conc 32.8 g/dl (31.0-37.0); Mean Corpuscular Hemoglobin 28.1 pg (25.0-35.0); Mean Corpuscular Volume 86 fL (80-100); Monocytes # (Auto) 0.8 Thou/mm3 (0.0-0.8); Monocytes % (Auto) 6 % (0-12); Neutrophils # (Auto) 7.6 Thou/mm3 (1.8-7.7); Neutrophils % (Auto) 60 % (37-80); Nucleated Red Blood Cell # 0.00 Thou/mm3 (0.00-0.00); Nucleated Red Blood Cell % 0 /100 WBC (0); Platelet Count 259 Thou/mm3 (140-440); RDW Standard Deviation 39.9 fL (35.1-43.9); Red Blood Count 5.51 Miln/mm3 (4.50-5.90); White Blood Count 12.7 Thou/mm3 (4.5-11.0)
[2025-07-10 19:47] LABS: Alanine Aminotransferase 22 U/L (10-49); Albumin, Serum 4.8 gm/dL (3.5-5.0); Albumin/Globulin Ratio 1.4 (1.2-2.2); Alkaline Phosphatase 97 U/L (46-116); Anion Gap 11 (7-16); Aspartate Amino Transferase 24 U/L (0-34); BUN/Creatinine Ratio 10 Ratio (12-20); Bilirubin,Total 0.5 mg/dL (0.3-1.2); Blood Urea Nitrogen 10 mg/dL (9-23); Calcium 10.0 mg/dL (8.3-10.6); Calcium (Corrected) 10.0 mg/dL (8.5-10.1); Carbon Dioxide 28.7 mMol/L (20.0-31.0); Chloride 104 mMol/L (98-107); Creatinine (Component) 1.0 mg/dL (0.6-1.3); Estimated Creatinine Clearance 192.2 mL/min (>60); Globulin 3.4 gm/dL (2.3-3.5); Glucose 78 mg/dL (74-106); Lipase 40 U/L (12-53); Osmolality,Calculated 284 (275-295); Potassium 4.0 mMol/L (3.4-5.1); Sodium 144 mMol/L (136-145); Total Protein 8.2 gm/dL (5.7-8.2); eGFR > 60 See Note
[2025-07-10 20:01] LABS: Collection Type, Urine Clean Catch
[2025-07-10 20:07] LABS: Bilirubin,Urine Negative (Negative); Blood,Urine Negative (Negative); Clarity,Urine Clear (Clear/Hazy); Color,Urine Yellow (Lt Yel-Yel); Glucose, Urine Negative (Negative); Ketones,Urine Negative (Negative); Leukocyte Esterase,Urine Negative (Negative); Nitrite,Urine Negative (Negative); PH,Urine 6.0 (5.0-7.0); Protein,Urine 1+ (Neg - Trace); RBC,Urine 2 /hpf (0-3); Specific Gravity,Urine 1.041 (1.001-1.035); Squamous Epithelial Cell,Urine < 1 /hpf (0-5); Urobilinogen,Urine Negative mg/dL (0.0-1.0); WBC,Urine 1 /hpf (0-5)
[2025-07-10] MEDS: HYDROcodone/APAP 5/325 TABLET 1 TAB PO (20:47)
--- NOTE | 2025-07-10 21:11 | PD.EDABDPN ---
ED Abdominal Pain RME/HPI General Chief Complaint: Abdominal Pain Stated complaint: GALLBLADDER PAIN Time seen by provider: 07/10/25 18:20 Arrival date/time: 07/10/25 18:19 This is a case of 19-year-old male with history of cholelithiasis came in in the emergency room due to right upper quadrant and epigastric pain for 1 day with nausea and vomiting patient denies any constipation diarrhea or blood in stool due to worsening of the pain this patient decided to sought consult here in the emergency room Limitations: no limitations Related Data Home Medications ?Medication ?Instructions ?Recorded ?Confirmed buspirone 5 mg tablet 5 mg PO DAILY 07/07/25 07/07/25 cholecalciferol (vitamin D3) 25 25 mcg PO QDAY 07/07/25 07/07/25 mcg (1,000 unit) tablet (Vitamin D3) propranolol 10 mg tablet 10 mg PO DAILY PRN panic attack(s) 07/07/25 07/07/25 Previous Rx's ?Medication ?Instructions ?Recorded famotidine 20 mg tablet 20 mg PO BID #30 tabs 05/09/25 famotidine 20 mg tablet 20 mg PO BID #60 tabs 07/10/25 hydrocodone 5 mg-acetaminophen 325 1 tab PO Q6H PRN pain #12 tabs 07/10/25 mg tablet ondansetron 4 mg disintegrating 4 mg PO Q8H PRN nausea and 07/10/25 tablet vomiting #20 tabs Allergies Allergy/AdvReac Type Severity Reaction Status Date / Time No Known Allergies Allergy Verified 07/10/25 18:19 Review of Systems Review of Systems Systems Reviewed: All systems reviewed, normal except as documented Constitutional Constitutional: Reports system reviewed and no additional complaints, except as documented and Reports as per HPI Cardiovascular Cardiovascular: Reports system reviewed and no additional complaints, except as documented and Reports as per HPI Respiratory Respiratory: Reports system reviewed and no additional complaints, except as documented and Reports as per HPI Gastrointestinal Gastrointestinal: Reports system reviewed and no additional complaints, except as documented, Reports abdominal pain and Reports vomiting Genitourinary Genitourinary: Reports system reviewed and no additional complaints, except as documented and Reports as per HPI Musculoskeletal Musculoskeletal: Reports system reviewed and no additional complaints, except as documented and Reports as per HPI Neurologic Neurologic: Reports system reviewed and no additional complaints, except as documented and Reports as per HPI Past Medical History Past Medical History NEUROLOGIC: Negative Neurological Disorders CARDIAC: Negative Cardiac Disorders or Congestive Heart Failure RESPIRATORY: Negative Chronic Obstructive Pulmonary Disease (COPD) GASTROINTESTINAL: Positive Gastrointestinal Disorders, Gall Bladder Disease, Gastroesophageal Reflux Disease and Obesity; Negative Hepatitis GENITOURINARY: Negative Genitourinary Disorders or Renal Disease MUSCULOSKELETAL: Negative Musculoskeletal Disorders ENDOCRINE: Negative Endocrine Disorders, Diabetes Mellitus Type 1 or Diabetes Mellitus Type 2 HEMATOLOGIC: Negative Blood Disorders PSYCHO/SOCIAL: Positive Depression and Anxiety (Panic attacks) OTHER HISTORY: Positive Hospitalization (surgery 7 yrs old); Negative Autoimmune Disease, Shingles, Blood Transfusions, Anesthesia Reactions or Cancer Family History FAMILY HISTORY: Positive Family Cancer; Negative Family Psychiatric Problems, Family Respiratory Disorders, Family Cardiac Disorders, Family Gastrointestinal Problems, Family Surgery or Family Anesthesia Reaction Surgical History SURGICAL: Positive Abdominal Surgery Social History SMOKING STATUS: Never smoker ED Exam General Limitations: Present no limitations General appearance: Present alert, in no apparent distress and other (Patient is awake alert oriented not in distress nontoxic looking well-hydrated well-nourished) Head Head exam: Present atraumatic, normocephalic and normal inspection Eye Eye exam: Present normal appearance, PERRL and EOMI ENT ENT exam: Present normal exam, normal oropharynx and mucous membranes moist Neck Neck exam: Present normal inspection, full ROM and trachea midline Chest Chest inspection: Present normal inspection and symmetric chest wall rise Respiratory Respiratory exam: Present normal lung sounds bilaterally; Absent respiratory distress, wheezes, stridor, accessory muscle use or prolonged expiratory phase Cardiovascular Cardiovascular exam: Present regular rate, normal rhythm and normal heart sounds; Absent bradycardia, tachycardia, irregular rhythm or systolic murmur Abdominal Exam Abdominal exam: Present soft, tenderness (Mild tenderness in the right upper quadrant and epigastric area) and normal bowel sounds; Absent distention, guarding, rebound, rigidity, diminished bowel sounds, hyperactive bowel sounds, hypoactive bowel sounds, organomegaly, obturator sign, Montiel's sign, Rovsing's sign or tenderness at McBurney's Point Extremities Exam Extremities exam: Present normal inspection and full ROM Back Exam Back exam: Present normal inspection and full ROM Neurological Exam Neurological exam: Present alert, oriented X3, CN II-XII intact, normal gait and reflexes normal; Absent motor sensory deficit Psychiatric Psychiatric exam: Present normal affect and normal mood Skin Skin exam: Present warm, dry, intact and normal color Course Quality Measures none Orders Category Date Time Status US gall bladder Stat Exams 07/10/25 19:05 Completed CBC Stat Lab 07/10/25 19:11 Completed Comprehensive Metabolic Panel Stat Lab 07/10/25 19:11 Completed Lipase Stat Lab 07/10/25 19:11 Completed Urinalysis Stat Lab 07/10/25 19:36 Completed HYDROcodone*/APAP 5/325 [[place] 5/325] Med 07/10/25 20:31 Discontinued 1 tab PO X1 ONE Morphine Inj Med 07/10/25 21:02 Discontinued 4 mg IM X1 ONE Ondansetron Odt [Zofran Odt] Med 07/10/25 21:02 Discontinued 4 mg PO X1 ONE Vital Signs Vital signs: Vital Signs Temperature 98.2 F 07/10/25 18:40 Pulse Rate 57 L 07/10/25 18:40 Respiratory Rate 19 07/10/25 18:40 Blood Pressure 128/84 07/10/25 18:40 Pulse Oximetry (%) 98 07/10/25 18:40 Oxygen Delivery Method Room Air 07/10/25 18:40 Oxygen saturation is 98% in room air Abdominal Pain MDM MDM Narrative MDM Narrative:: This is a case of 19-year-old male with history of cholelithiasis came in in the emergency room due to right upper quadrant and epigastric pain for 1 day with nausea and vomiting patient denies any constipation diarrhea or blood in stool due to worsening of the pain this patient decided to sought consult here in the emergency room physical examination patient is awake alert oriented not in distress well-hydrated excellent skin turgor no signs and symptoms of sepsis or dehydration abdominal exam is benign nonsurgical mild to moderate tenderness in epigastric area and right upper quadrant negative for guarding rebound rigidity negative for Montiel sign negative psoas negative straight or negative Rovsing's negative Montiel's negative Montiel sign negative CVA tenderness blood test showed leukocytosis at 12.7 no anemia kidney and liver function is normal no electrolyte imbalance urinalysis normal ultrasound of the gallbladder is cholelithiasis no cholecystitis after giving morphine and Zofran patient condition markedly improved he was advised to see a general surgeon for further evaluation and treatment of cholelithiasis return precaution to the ER was also advised the patient Patient was discharged with comfortable condition walking with stable gait. Patient verbalized no further complains explained diagnosis and answered patient question. Patient is comfortable with the proposed management plan including the need to follow up with his/her primary care physician and any specialist if applicable Discussed patient for any urgent condition or worsening sx, He/She needed to go to emergency room immediately or call 911. Patient acknowledge the responsibility to follow up as instructed and to monitor her/his symptoms. For any persistence of the symptoms for more than 3-5 days return precaution advised. Discussed the result of the test and was given printed discharge instruction Patient data External records reviewed:: [facility] previous records Clinical information provided by:: patient Social determinants that could affect healthcare access:: none Patient has the following chronic illnesses:: None How is presenting disease/condition affected by chronic disease/condition?: no chronic disease Evaluation data The following diagnostics were reviewed and interpreted by me:: lab results and radiology exam(s) Lab and/or radiology exams considered but not ordered:: Reviewed Interpretation Summary: Reviewed Medications / Prescriptions Medications or Prescriptions considered but not ordered:: Given Medication administrations:: Medication Administration History Discontinued Medications Hydrocodone Bitart/Acetaminophen (Hydrocodone/[place]ap 5/325 Tablet) 1 tab PO X1 ONE Stop: 07/10/25 20:32 Last Admin: 07/10/25 20:47 Dose: 1 tab Documented By: [facility] Morphine Sulfate (Morphine Sulf Inj 10 Mg/Ml Vial) 4 mg IM X1 ONE Stop: 07/10/25 21:03 Ondansetron HCl (Ondansetron Odt 4 Mg Tabrap) 4 mg PO X1 ONE; Protocol Stop: 07/10/25 21:03 Given Consultations Consultation(s) initiated? (list below): No Diagnosis Differential diagnosis abdominal pain: abdominal pain, acute appendicitis, calculus of kidney, constipation, diverticulitis, endometriosis, gastroenteritis and other (Cholelithiasis) Most likely diagnosis given after review of the tests above:: Cholelithiasis Admission Indicated Admission indicated?: not indicated Explain why admission is indicated or not indicated:: Not indicated Admission Request Was there a request for admission?: No Admission Attestation Admission request attestation: Not indicated Disposition Plan Disposition Plan: Discharge Discharge Attestation Discharge Attestation: The patient and all family members were given an opportunity to ask questions and understood the discharge instructions. Discharge instructions specifically effects, indications for sooner follow up or return to the emergency department, and the expected course of current diagnosis. Patient condition: Stable Discharge Plan Plan Patient Disposition: HOME (Self Care) Patient condition on transfer: Stable Prescriptions/Referrals Prescriptions/Med Rec: New hydrocodone-acetaminophen 5-325 mg tablet 1 tab PO Q6H MDD 4 tabs per day PRN (Reason: pain) Qty: 12 0RF ondansetron 4 mg tablet,disintegrating 4 mg PO Q8H PRN (Reason: nausea and vomiting) Qty: 20 0RF famotidine 20 mg tablet 20 mg PO BID Qty: 60 0RF No Action buspirone 5 mg tablet 5 mg PO DAILY cholecalciferol (vitamin D3) [Vitamin D3] 25 mcg (1,000 unit) tablet 25 mcg PO QDAY propranolol 10 mg tablet 10 mg PO DAILY PRN (Reason: panic attack(s)) famotidine 20 mg tablet 20 mg PO BID Qty: 30 0RF Referrals: Alysia Bettencourt MD [Physician] - 07/12/25 (For further evaluation and treatment cholelithiasis) No Primary/Family,Physician [Primary Care Provider] - In 1 week Problem List Clinical Impression: Abdominal pain, Cholelithiasis Patient/Caregiver Discharge Instructions Education Materials: Abdominal Pain, What Are Gallstones, Treating Gallstones Additional Instructions: Follow-up with your primary care physician in 2 days for reevaluation and to be referred to general surgeon for further evaluation and treatment of cholelithiasis worsening symptoms or any emergent concern return to the emergency room immediately or call 911 avoid fat fried high cholesterol dairy food take your medication as directed keep hydrated Print Language: Dominican Stand Alone Forms: Luna Award Info., Patient Portal Info Letter PA/ASHLEIGH Supervising Physician PA/ASHLEIGH Supervising Physician: Dr cantu
[2025-07-10] MEDS: ONDANSETRON ODT 4 MG TABRAP PO (21:13)
[2025-07-10] MEDS: MORPHINE SULF INJ 10 MG/ML VIAL 4 MG IM (21:13)
== END 2025-07-10 21:22 | disposition home or self-care (01) ==
PROVIDERS: Nurse Practitioner Family; Emergency Provider Emergency Medicine
DX: K80.20 Calculus of gallbladder without cholecystitis without obstruction (principal)
CPT/HCPCS: 36415; 76705; 80053; 81001; 83690; 85025; 96372; 99282; J2270; Q0162; A9270

== ENCOUNTER 2025-07-13 05:55 | Day surgery (SDC) | payer MEDICAID, SELFPAY ==
[2025-07-07 11:02] VITALS: BMI 33.8
[2025-07-07 11:57] LABS: Basophils # (Auto) 0.0 Thou/mm3 (0.0-0.2); Basophils % (Auto) 0 % (0-2.5); Eosinophils # (Auto) 0.2 Thou/mm3 (0.0-0.5); Eosinophils % (Auto) 3 % (0-10); Hematocrit 49.0 % (41.0-53.0); Hemoglobin 16.2 g/dL (13.5-16.0); Immature Granulocytes Auto 0.04 Thou/mm3 (0.00-0.00); Lymphocytes # (Auto) 2.8 Thou/mm3 (1.0-4.8); Lymphocytes % (Auto) 29 % (10-50); Mean Corpuscular HGB Conc 33.1 g/dl (31.0-37.0); Mean Corpuscular Hemoglobin 27.9 pg (25.0-35.0); Mean Corpuscular Volume 85 fL (80-100); Monocytes # (Auto) 0.7 Thou/mm3 (0.0-0.8); Monocytes % (Auto) 8 % (0-12); Neutrophils # (Auto) 5.8 Thou/mm3 (1.8-7.7); Neutrophils % (Auto) 60 % (37-80); Nucleated Red Blood Cell # 0.00 Thou/mm3 (0.00-0.00); Nucleated Red Blood Cell % 0 /100 WBC (0); Platelet Count 308 Thou/mm3 (140-440); RDW Standard Deviation 39.8 fL (35.1-43.9); Red Blood Count 5.80 Miln/mm3 (4.50-5.90); White Blood Count 9.7 Thou/mm3 (4.5-11.0)
[2025-07-07 12:00] LABS: INR 1.0 (0.9-1.3); Partial Thromboplastin Time 28.1 Seconds (22.0-36.0); Prothrombin Time 10.9 Seconds (9.0-12.2)
[2025-07-07 12:14] LABS: Alanine Aminotransferase 18 U/L (10-49); Albumin, Serum 5.1 gm/dL (3.5-5.0); Albumin/Globulin Ratio 1.9 (1.2-2.2); Alkaline Phosphatase 87 U/L (46-116); Anion Gap 9 (7-16); Aspartate Amino Transferase 20 U/L (0-34); BUN/Creatinine Ratio 13 Ratio (12-20); Bilirubin,Total 0.7 mg/dL (0.3-1.2); Blood Urea Nitrogen 12 mg/dL (9-23); Calcium 10.7 mg/dL (8.3-10.6); Calcium (Corrected) 10.7 mg/dL (8.5-10.1); Carbon Dioxide 28.4 mMol/L (20.0-31.0); Chloride 104 mMol/L (98-107); Creatinine (Component) 0.9 mg/dL (0.6-1.3); Estimated Creatinine Clearance 174.9 mL/min (>60); Globulin 2.7 gm/dL (2.3-3.5); Glucose 83 mg/dL (74-106); Osmolality,Calculated 279 (275-295); Potassium 4.0 mMol/L (3.4-5.1); Sodium 141 mMol/L (136-145); Total Protein 7.8 gm/dL (5.7-8.2); eGFR > 60 See Note
[2025-07-13] VITALS (7 sets, daily range): BP systolic 132–145; BP diastolic 72–98; PULSE 57–84; RESP 12–17; TEMP 36.3–36.6; O2SAT 97–100; BMI 32.3
[2025-07-13] MEDS: RINGERS LACTATED 1000 ML 1,000 ML 20 ML IV (06:28)
--- NOTE | 2025-07-13 09:28 | SUR.PHASEI ---
0928: Pt. arrived with oral airway in place, vitals stable, breathing unlabored, no signs of distress, x4 dressing to ABD CDI, no active bleed noted, report received from MD Hernandes and Selina RN.
--- NOTE | 2025-07-13 09:56 | ESOP_ITS ---
Date of Procedure 07/13/25 Pre Op Diagnosis Symptomatic cholelithiasis with recurrent biliary colic Post Op Diagnosis Same Procedure Laparoscopic cholecystectomy Findings Patient was found to have some chronic inflamed gallbladder with multiple stones Procedure Description After endotracheal anesthesia was given the patient was placed in supine position and the abdomen was prepped with chloroprep solution and draped in a sterile manner. After time out was performed I injected a few cc of of half percent Marcaine with epinephrine below the umbilicus and I made an incision for about 3 cm in length. The fascia was cleaned and Veress needle was inserted to create a pneumoperitoneum up to 15 mmHg. Then introduced a 12 mm trocar and a 10 mm camera through the fascia and I inspected the intra-abdominal organs as well as the gallbladder and the liver. Another 5 mm trocar was inserted in the epigastric region under direct vision after injecting some local anesthesia. At this time the patient was kept in reverse Trendelenburg position with the left lateral tilt. The third 5 mm trocar was inserted over the mid axillary line under direct vision and a Tj and Bassam grasper was used to hold the fundus of the gallbladder. The retraction was carried out by the assistant real estate manager moving the fundus of the gallbladder towards the right shoulder of the patient to create enough traction. I placed a another 5 mm trocar in the midaxillary line just lateral to the rectus muscle under direct vision. I used a fenestrated grasper to retract the neck of the gallbladder laterally towards the patient's right hip. The Calot's triangle was exposed and I achieved the critical view of safety as follows: I dissected out the fatty tissue from the hepatocystic triangle and cleared this area. I also dissected inferior and posterior to the gallbladder to identify the cystic duct and the gallbladder wall. Then superiorly I dissected along the cystic plate up to lower one third third of the gallbladder to lift the gallbladder from the liver. At this time I confirmed that only 2 structures entering the gallbladder were cystic artery and the cystic duct. The common duct was seen distally but no dissection was carried out around the duct. I did not see any need for operative cholangiogram in this patient. The cystic duct was clipped doubly and then divided and cystic artery was similarly dealt with. Then the gallbladder was removed from the liver bed using Harmonic elizabeth to control the small blood vessels as the dissection proce eded. Then the gallbladder was from the liver bed completely and delivered through the umbilical port using an Endopouch. The liver bed was coagulated with cautery to obtain satisfactory hemostasis. The trocars were pulled out from the abdominal cavity and the fascia at the umbilical incision was closed with interrupted 0 Ethibond. Subcutaneous tissues was closed with 3- 0 chromic and injected a few cc of half percent Marcaine with epinephrine and the skin was closed with interrupted 4-0 nylon stitches at all the trocar sites. Dressing was applied with 2 x 2 and Tegaderm. Patient tolerated the procedure well and returned to recovery room in stable condition. Anesthesia GETA Pathology / specimen Other (Gallbladder and the stones) IVF Infused 1,000 Estimated Blood Loss 50 Surgeon Osbaldo Hernandez MD Surgical Staff Operation Date: 07/13/25 08:00 Case Staff Anesthesiologist: Jameel Hernandes RN First Assistant: Nuvia Valdez
[2025-07-13] MEDS: fentaNYL CIT INJ 50 mCg/ML AMP 2ML 25 MCG IV (09:58)
--- NOTE | 2025-07-13 10:16 | SUR.PHASEII ---
1016: Pt. AAOx4, vitals stable, breathing unlabored, no complaint of pain or nausea, x4 dressing sites to ABD CDI, no active bleed noted, pt. tolerated sips of soda well, pt. ambulated to wheelchair with steady gait and no assist, no complications. Gave discharge instructions to the pt. and his ride, both verbalized understanding and had no further questions. Pt. left with all personal belongings.
== END 2025-07-13 10:16 | disposition home or self-care (01) ==
PROVIDERS: PCP Family Medicine; Referring Provider Surgery; Visit Provider Surgery
PROC: 0FT44ZZ Resection of Gallbladder, Percutaneous Endoscopic Approach (ICD-10-PCS; CPT 47562; principal; 2025-07-13 08:00)
DX: K80.10 Calculus of gallbladder with chronic cholecystitis without obstruction (principal); F41.9 Anxiety disorder, unspecified; E66.01 Morbid (severe) obesity due to excess calories; K21.9 Gastro-esophageal reflux disease without esophagitis; Z68.32 Body mass index [BMI] 32.0-32.9, adult
CPT/HCPCS: 47562; 36415; 80053; 85025; 85610; 85730; A4217; A4649; J0131; J2250; J2371; J2704; J3010; J3490; J7120; A9270